=== PATIENT | female | born 1965 | race Caucasian/White ===

== ENCOUNTER 2021-04-21 18:45 | Emergency (ER) | payer OTHER ==
--- NOTE | 2021-04-21 19:56 | EDM.PDOC ---
ED HPI GENERAL MEDICAL PROBLEM - General Chief Complaint: Upper Extremity Injury/Pain Stated Complaint: L WRIST INJURY Time Seen by Provider: 04/21/21 19:40 Source of Information: Reports: Patient, Family History Limitations: Reports: No Limitations - History of Present Illness INITIAL COMMENTS - FREE TEXT/NARRATIVE: 55-year-old otherwise healthy female fell from a log landing on her left hand and wrist, sustaining a wrist injury. She has some swelling and slight deformity of the wrist but full sensation to the fingers. Her ring finger ring was removed. No other injury other than some very superficial abrasions on her left lower leg. 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) Left Wrist Pain Score (Numeric/FACES): 6 - Related Data Allergies Allergy/AdvReac Type Severity Reaction Status Date / Time No Known Allergies Allergy Verified 04/21/21 19:40 Home Meds: Home Meds NK [No Known Home Meds] 04/21/21 [History] Social & Family History - Tobacco Use Tobacco Use Status *Q: Never Tobacco User - Caffeine Use Caffeine Use: Reports: None - Recreational Drug Use Recreational Drug Use: No Review of Systems - Review of Systems Review Of Systems: See Below Constitutional: Denies: Fever Mouth/Throat: Reports: No Symptoms Respiratory: Reports: No Symptoms Cardiovascular: Reports: No Symptoms Genitourinary: Reports: No Symptoms Musculoskeletal: Reports: Other (Left wrist pain) Skin: Reports: Other (A few superficial abrasions across her left lower leg). Denies: Bruising Neurological: Reports: No Symptoms Psychiatric: Reports: No Symptoms ED EXAM, GENERAL - Physical Exam Exam: See Below Exam Limited By: No Limitations General Appearance: Alert, Mild Distress Head: Atraumatic Neck: Supple, Non-Tender Respiratory/Chest: Lungs Clear Cardiovascular: Regular Rate, Rhythm Extremities: Other (There is swelling and tenderness over the distal radius of the left wrist, pain with movement of the wrist but normal CMS distally. Her ring on her ring finger was removed.) Neurological: Alert, Oriented Psychiatric: Normal Affect, Normal Mood Skin Exam: Warm, Dry Course - Vital Signs Last Recorded V/S: Last Vital Signs Temp 98.4 F 04/21/21 19:54 Pulse 63 04/21/21 21:45 Resp 15 04/21/21 21:45 BP 125/60 04/21/21 21:45 Pulse Ox 100 04/21/21 21:45 - Orders/Labs/Meds Orders: Active Orders 24 hr Category Date Time Status Wrist 2V Lt [CR] Stat Exams 04/21/21 20:47 Taken Wrist Comp Min 3V Lt [CR] Stat Exams 04/21/21 19:48 Taken DME for Discharge [COMM] Stat Oth 04/21/21 20:48 Ordered Meds: Medications Discontinued Medications Generic Name Dose Route Start Last Admin Trade Name Lynne PRN Reason Stop Dose Admin Fentanyl 25 mcg 04/21/21 21:04 04/21/21 21:24 Fentanyl 100 Mcg/2 Ml Sdv IVPUSH 04/21/21 21:05 25 mcg ONETIME ONE Administration Ketorolac Tromethamine 30 mg 04/21/21 21:04 04/21/21 21:24 Ketorolac 30 Mg/Ml Sdv IVPUSH 04/21/21 21:05 30 mg ONETIME ONE Administration Propofol 200 mg 04/21/21 20:23 04/21/21 20:45 Propofol 200 Mg/20 Ml Sdv IVPUSH 04/21/21 20:24 200 mg ONETIME ONE Administration - Re-Assessments/Exams Free Text/Narrative Re-Assessment/Exam: 04/21/21 20:32 Left wrist x-ray was done which showed a Colles' fracture. Dr. Cheema was consulted and he kindly agreed to come in for external reduction. This will be done under propofol anesthesia. 04/22/21 04:02 With the assistance of Dr. Cheema, the fracture was reduced to near anatomical position and a long-arm splint was applied by Dr. Cheema. She was placed in a sling, discharged with 10 hydrocodone for extra pain control, and given copies of her x-rays. She will recheck with orthopedics when she gets home. Departure - Departure Time of Disposition: 21:56 Disposition: Home, Self-Care 01 Clinical Impression: Closed left radial fracture Qualifiers: Encounter type: initial encounter Radius location: distal Fracture morphology: Colles' Qualified Code(s): S52.532A - Colles' fracture of left radius, initial encounter for closed fracture - Discharge Information Instructions: Radial Fracture, Closed Reduction for Wrist or Forearm Referrals: PCP,None [Primary Care Provider] - Forms: ED Department Discharge Care Plan Goals: A regular dose of ibuprofen or naproxen starting tomorrow may be helpful, keep arm in sling to help with elevation. Use stronger pain medications as needed for extra pain control. Recheck with orthopedics within the next 7 to 10 days for further care. Sepsis Event Note (ED) - Focused Exam Vital Signs: Vital Signs Temp Pulse Resp BP Pulse Ox 04/21/21 21:45 63 15 125/60 100 04/21/21 19:54 98.4 F 61 16 137/71 100 - My Orders Last 24 Hours: My Active Orders 04/21/21 19:48 Wrist Comp Min 3V Lt [CR] Stat 04/21/21 20:47 Wrist 2V Lt [CR] Stat 04/21/21 20:48 DME for Discharge [COMM] Stat - Assessment/Plan Last 24 Hours: My Active Orders 04/21/21 19:48 Wrist Comp Min 3V Lt [CR] Stat 04/21/21 20:47 Wrist 2V Lt [CR] Stat 04/21/21 20:48 DME for Discharge [COMM] Stat
[2021-04-21] MEDS ORDERED: Propofol 200 MG/20 ML SDV IVPUSH ONE (20:23)
[2021-04-21] MEDS ORDERED: Ketorolac 30 MG/ML SDV IVPUSH ONE (21:04)
[2021-04-21] MEDS ORDERED: fentaNYL 100 MCG/2 ML SDV IVPUSH ONE (21:04)
--- NOTE | 2021-04-22 09:34 | CR ---
Wrist Comp Min 3V Lt CLINICAL HISTORY: Injury FINDINGS: There is an impaction fracture of the distal radius with dorsal angulation. There is some abutment of the distal ulna on the proximal carpal row. Impression: Fracture distal radius
--- NOTE | 2021-04-22 09:35 | CR ---
Wrist 2V Lt CLINICAL HISTORY: Postreduction FINDINGS: There is there has been reduction of angulation and impaction of the distal radial fracture
== END 2021-04-21 21:56 | disposition home or self-care (01) ==
LOC: JP.ED 18:45
DX: S52.532A Colles' fracture of left radius, initial encounter for closed fracture (principal); W18.39XA Other fall on same level, initial encounter
CPT/HCPCS: 25605; 73100; 73110; 96374; 96375; 99283; J1885; J2704; J3010